=== PATIENT | male | born 1985 | race African-American/Black ===

== ENCOUNTER 2024-09-11 14:54 | Emergency (ER) | payer MEDICAID ==
[~2024-09-11] VITALS: Ht 175.3 cm; Wt 75.0 kg
[2024-09-11 15:30] VITALS: BP 128/92; PULSE 104; RESP 18; TEMP 98.2; O2SAT 99
[2024-09-11] MEDS: BACITRACIN ZINC OINT UDPKT TOP ONE (16:00)
[2024-09-11] MEDS ORDERED: HYDROCODONE/ACETAMINOPHEN 5/325MG TABLET PO ONE (16:00)
[2024-09-11] MEDS ORDERED: BO1 TP (17:33)
[2024-09-11] MEDS ORDERED: SULF1TAB48 MT (17:33)
[2024-09-11] MEDS ORDERED: IBUP-2030 MT (17:41)
[2024-09-11] MEDS: HYDROCODONE/ACETAMINOPHEN 5/325MG TABLET PO NR (17:58)
[2024-09-11] MEDS: LIDOCAINE HCL/PF 1% 10 MG/ML 5ML VIAL INFIL ONE (18:00)
== END 2024-09-11 18:02 | disposition home or self-care (01) ==
LOC: ER 15:30
DX: S61.412A Laceration without foreign body of left hand, initial encounter (principal); Z88.0 Allergy status to penicillin; Z79.899 Other long term (current) drug therapy; V19.9XXA Pedal cyclist (driver) (passenger) injured in unspecified traffic accident, initial encounter; Y93.89 Activity, other specified; Y92.89 Other specified places as the place of occurrence of the external cause; Y99.8 Other external cause status
CPT/HCPCS: 99283; 73130; 12002; J3490

== ENCOUNTER 2024-10-17 22:30 | Emergency (ER) | payer OTHER ==
[~2024-10-17] VITALS: Ht 172.7 cm; Wt 63.5 kg
[~2024-10-17 22:30] MED LIST: BO1 TP; IBUP-2030 MT; SULF1TAB48 MT
[2024-10-17 22:59] VITALS: O2SAT 99
[2024-10-17] MEDS ORDERED: BO1 TP (23:56)
[2024-10-17] MEDS ORDERED: IBUP-2028 MT (23:56)
[2024-10-18 00:17] VITALS: BP 131/89; PULSE 78; RESP 19; TEMP 36.9; O2SAT 98
[2024-10-18] MEDS: IBUPROFEN 400MG TABLET PO ONE (00:17)
== END 2024-10-18 00:18 | disposition home or self-care (01) ==
LOC: ER 22:30
DX: S61.412D Laceration without foreign body of left hand, subsequent encounter (principal); Z88.0 Allergy status to penicillin; Z98.890 Other specified postprocedural states; X58.XXXD Exposure to other specified factors, subsequent encounter
CPT/HCPCS: 99282

== ENCOUNTER 2025-04-07 12:45 | Emergency (ER) | payer OTHER ==
[~2025-04-07] VITALS: Ht 175.3 cm; Wt 77.0 kg
[~2025-04-07 12:45] MED LIST changes: +IBUP-2028 MT
[2025-04-07 12:50] VITALS: O2SAT 99
[2025-04-07] MEDS: LIDOCAINE 5% PATCH TOP SCH (13:45)
[2025-04-07] MEDS: KETOROLAC 30MG/ML VIAL IM ONE (13:45)
[2025-04-07] MEDS: CYCLOBENZAPRINE 10MG TABLET PO ONE (14:09)
[2025-04-07] MEDS ORDERED: CYCL10TA21 MT (14:46)
[2025-04-07 15:06] VITALS: BP 115/78; PULSE 71; RESP 16; TEMP 36.6; O2SAT 100
== END 2025-04-07 15:10 | disposition home or self-care (01) ==
LOC: ER 12:45
DX: M54.9 Dorsalgia, unspecified (principal); M47.812 Spondylosis without myelopathy or radiculopathy, cervical region; M48.02 Spinal stenosis, cervical region; Z88.0 Allergy status to penicillin; W18.30XA Fall on same level, unspecified, initial encounter; Y93.89 Activity, other specified; Y92.89 Other specified places as the place of occurrence of the external cause; Y99.8 Other external cause status
CPT/HCPCS: 72125; 72128; 72131; 99284; Z7610; J1885